=== PATIENT | female | born 1965 | race Caucasian/White ===

== ENCOUNTER 2020-10-12 07:38 | Outpatient (RCR) | payer OTHER, SELFPAY ==
--- NOTE | 2020-10-12 07:51 | PTOPEVAL ---
Thank you for referring MENA ALCANTARA to [facility].? The patient is scheduled to be seen for therapy? __2__x/week for 8 visits. Please review, sign, date and return this plan of care IVETTE. I agree with and certify that the following plan of care is medically necessary. Referring Physician Date Admitting Provider: Attending Provider: Daniel Danielle, MD Referring Provider: *PT Outpatient Evaluation Start: 10/12/20 06:58 Freq: Status: Active Protocol: Document 10/12/20 06:58 OSCAR (Rec: 10/12/20 07:50 OSCAR [email or web address]) Therapy Assessment Status Assessment Status Assessment Status Evaluation Evaluation Information Problem Diagnosis plantar fascitis, right Onset 10/13/19 Subjective Information Pt. reports that pain in the Query Text:As Reported By Patient/ right foot started last year. Family She did recieve a cortisone injection with temporary relief. She states that she underwent another injection last week which did help to ease her pain. She states that pain is most notable with standing and walking. she notes that getting out of bed in the morning is one of the most painful points of the day . She describes pain around the right heel. she reports that she has had no MRI or xray. She reports that her goal for therapy is to reduce her heel pain. Prior Level of Function Activity Level (Last 3 Months) Occupation mutual fund accountant Hand Dominance Right Activity of Daily Living Ability Independent Indoor/Home Mobility Independent Community Mobility Independent Stairs Ability Independent Functional Cognition (Planning, Shopping Independent , Taking Medications) Cooking Yes Cleaning Yes Laundry Yes Shopping Yes Driving Yes Pain Assessment Timing of Pain Assessment Timing of Pain Assessment Pre-Treatment Pain Scale Pain Scale Used Numeric (1 - 10) Self Report Pain Assessment Right Heel(s) Reported Pain Level 1 Pain Description Aching Lowest Pain Intensity 1 Greatest Pain Intensity 6 Pain Aggravating Factors Palpation,Walking,W
== END 2020-10-30 11:15 | disposition home or self-care (01) ==
LOC: CHSPT 07:38
PROVIDERS: Visit Provider Family Medicine
DX: M72.2 Plantar fascial fibromatosis (principal)
CPT/HCPCS: 97110; 97140; 97161; 97530